=== PATIENT | female | born 2000 | race Caucasian/White ===

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

== ENCOUNTER 2020-08-17 10:33 | Emergency (ER) | payer BC ==
[~2020-08-17] VITALS: Ht 165.1 cm; Wt 56.7 kg
[~2020-08-17 10:33] MED LIST changes: +MEDROLDOSEPACK PO; +NAPROSYN500 MG PO; +ROBAXIN 750 MG750 M1 PO
[2020-08-17 11:42] VITALS: BP 109/66
== END 2020-08-17 11:42 | disposition home or self-care (01) ==
LOC: M.ERS 10:33
DX: B34.9 Viral infection, unspecified (principal); Z20.828 Contact with and (suspected) exposure to other viral communicable diseases